=== PATIENT | female | born 1955 | race Caucasian/White ===

== ENCOUNTER 2022-02-23 20:40 | Outpatient (CLI) | payer OTHER, SELFPAY | END 2022-02-23 20:41 | disposition home or self-care (01) | LOC: AMB 03-04 10:32 | PROVIDERS: Visit Provider Family Medicine | DX: R45.851 Suicidal ideations (principal) | CPT/HCPCS: A0425; A0429 ==

== ENCOUNTER 2022-02-23 21:00 | Emergency (ER) | payer OTHER, SELFPAY ==
[2022-02-23 21:10] VITALS: BP 161/90; PULSE 94; RESP 18; TEMP 36.8; O2SAT 94; BMI 25.1
[2022-02-23 21:12] LABS: Appearance Urine Clear (Clear); Bilirubin Urine Negative (Negative); Blood Urine Negative (Negative); Color Urine Yellow (Yellow); Glucose Urine Negative (Negative); Ketones Urine Negative (Negative); Leukocyte Esterase Urine 1+ (Negative); Nitrite Urine Negative (Negative); Protein Urine Negative (Negative); Specific Gravity Urine <= 1.005 (1.000-1.030); Urobilinogen Urine 0.2 (0.2-1.0); pH Urine 5.5 (5.0-8.5)
[2022-02-23 21:22] LABS: RBC Urine 0-2 (0-2)
--- NOTE | 2022-02-23 21:49 | ED.NURSE ---
pt did change to paper scrubs and belongings taken from room and documented by security. pt has pleasant demeanor, not hungry, provided socks, ice water, and remote. pt states chronic bilat foot pain
--- NOTE | 2022-02-23 23:18 | ED.NURSE ---
pt did ambulate to br independently
--- NOTE | 2022-02-23 23:36 | ED_ITS ---
HPI - Psych General Chief Complaint: Psychiatric Problem/Disorder Stated Complaint: Mental Health Time Seen by Provider: 02/23/22 21:34 History of Present Illness HPI Narrative: 66-year-old woman brought to the emergency department by police with concern of suicidal intent. Admits to drinking tonkaitlynn, today. Endorses 5 today same as usual combination of beer and vodka. She feels that she is generally in the same degree of sadness as well. Last seen through this facility about a year ago for an inferior epigastric artery hematoma upon which was transferred to [facility]. Reportedly plan francis was to sit in a garage with the car running. This is how it is reported initially to me and her daughter Leslie called this called police. This gnosticist endorses often feeling this way it comes and goes indicating this is not a new feeling. The garage apparently is always a backup plan. When pressed it sounds like generally she is hoping to get cancer and I naturally. I note some oconnor on her forearms, these look consistent with baking and confirms that from her place of employment. Insert substances denies any history of alcohol treatment or withdrawal. She does not attend meetings /AA. Nor does she see any therapist. she also acknowledges that actually need antidepressant and does have a primary Sigge - this is A provider at the [facility]. at this point she says she would just as soon just as soon go home. I am not going to kill myself she says vegaight she was not actually in the garage in fact was in bed watching Netflix. Sounds there was some disagreement with her daughter Leslie who has moved back home. She says sometimes parents aren't She expresses jalen talking about her container gardening particularly hibiscus; this is what she would like to go back to. appreciated expressing disappointment that Leslie called for help. She does admit that she had said something done it before and it did not work apparently in reference to a pill ingestion in a suicide attempt. Sounds like she took a bunch of atorvastatin. I later speak with Leslie Camarena daughter: phone number [phone]. she is quite measured in conversation, calm. Leslie indicates her mother's problem with drinking and describes Ms. Camarena tendency to send not nice texts when she has been drinking. At one point Ms. Gan said no one loves me and was making statements better off indicating that she would then not have to pay bills ( the potential cost of this visit here today is partly what is stressing Ms. Gan at this point). what was particularly alarming to Leslie and then the family members to home with whom she shared this information; they reached a joint conclusion that it would be better to have Ms. Gan evaluated in the emergency department. Statement of more concern was done it before, tried it, this time going to do it right. Leslie indicates that there is a history of abusing leeo-vyo-wvzuhth medications as well as abuse of alcohol. Details of plan: See above Related Data Home Medications Medication Instructions Recorded Confirmed albuterol sulfate 90 mcg/actuation INHALATION 02/23/22 aerosol inhaler atorvastatin 40 mg tablet mg 02/23/22 ipratropium 0.5 mg-albuterol 3 mg ml INHALATION 02/23/22 (2.5 mg base)/3 mL nebulization soln ipratropium 20 mcg-albuterol 100 INHALATION 02/23/22 mcg/actuation mist for inhalation (Combivent Respimat) levothyroxine 25 mcg tablet mcg 02/23/22 lisinopril 5 mg tablet mg 02/23/22 nicotine 14 mg/24 hr daily 02/23/22 transdermal patch umeclidinium 62.5 mcg-vilanterol INHALATION 02/23/22 25 mcg/actuation powdr for inhalation (Anoro Ellipta) Allergies Allergy/AdvReac Type Severity Reaction Status Date / Time No Known Drug Allergies Allergy Verified 02/23/22 21:59 Review of Systems Status of ROS: Reports: 10 or more systems reviewed and unremarkable except as noted in History and below [facility] Medical History (Updated 02/24/22 @ 01:24 by Noah Parra MD) Suicide attempt Social History (Updated 02/23/22 @ 23:57 by Noah Parra MD) Previous occupational history: currently working at [employer] Smoking Status: Current every day smoker How often do you have a drink containing alcohol: 4 or more times a week How many standard drinks containing alcohol do you have on a typical day: 5 or 6 How often do you have six or more drinks on one occasion: Weekly AUDIT-C Alcohol total score: 9 Non-prescribed substance use: denies use service: No Exam Narrative: Exam Narrative: Ms. Gan is pleasant. Eyes are injected. Looks as if may have been a little tearful this evening. She is appropriately casually groomed. Skin is warm and dry. No evidence of self-harm behavior. These 2 burn fisher 1 on each forearm are consistent with work injury. Well-perfused peripherally. seems mildly intoxicated. Thought content is sad, affect a little depressed. She is able to smile. is polite in her frustration about being in the emergency department. She denies SI or HI. Cranial nerves 2-12 intact. Oropharynx is moist Transitions to sitting without difficulty. is noted to be ambulating without difficulty as well. CV elevated rate regular rhythm no MR Wick. abdomen is soft nontender without masses. Const: Vital Signs, click to edit/add: Vital Signs - 24 hr 02/23/22 21:10 Temperature 98.2 F Pulse Rate [Right Pulse Oximeter] 94 Respiratory Rate 18 Blood Pressure [Ri ght Upper Arm] 161/90 H Pulse Oximetry 94 Course Course Hospital Course: From a conversation with Ms. Gan, I would not consider her to be imminently suicidal. I would however like her to prenatal genetic counselor with a [employer] to obtain a sooner than later psychiatric appointment in follow-up. She is begrudgingly willing to do this. Reevaluation(s) Reevaluation #2: having met with [employer] Clary, still requesting departure home. Not suicidal. Consultations Consultation #1: spoke with [employer] net developer Time: 00:15 Vital Signs Vital signs: Initial Vital Signs Temperature 98.2 F 02/23/22 21:10 Temperature Source Temporal Artery Scan 02/23/22 21:10 Pulse Rate 94 02/23/22 21:10 Respiratory Rate 18 02/23/22 21:10 Blood Pressure 161/90 H 02/23/22 21:10 Blood Pressure Mean 113 02/23/22 21:10 Blood Pressure Position Supine 02/23/22 21:10 Pulse Oximetry 94 02/23/22 21:10 Oxygen Delivery Method 02/23/22 21:10 Vital Signs Temperature 98.2 F 02/23/22 21:10 Pulse Rate 94 02/23/22 21:10 Respiratory Rate 18 02/23/22 21:10 Blood Pressure 161/90 H 02/23/22 21:10 Pulse Oximetry 94 02/23/22 21:10 Temperature 98.2 F 02/23/22 21:10 Pulse Rate 94 02/23/22 21:10 Respiratory Rate 18 02/23/22 21:10 Blood Pressure 161/90 H 02/23/22 21:10 Pulse Oximetry 94 02/23/22 21:10 MDM - Psych Differential Diagnosis Differential diagnosis: Likely suicidal ideation, bipolar disorder and depression Medical Records Attestation: I reviewed the patient's medical records. Medical records narrative: amended past medical surgical history above Lab Data Labs: Lab Results 02/23/22 Range/Units 21:00 Urine Color Yellow (Yellow) Urine Appearance Clear (Clear) Urine pH 5.5 (5.0-8.5) Ur Specific [place] <= 1.005 (1.000-1.030) Urine Protein Negative (Negative) Urine Glucose (UA) Negative (Negative) Urine Ketones Negative (Negative) Urine Blood Negative (Negative) Urine Nitrite Negative (Negative) Urine Bilirubin Negative (Negative) Urine Urobilinogen 0.2 (0.2-1.0) Ur Leukocyte Esterase 1+ A (Negative) Urine RBC 0-2 (0-2) Urine WBC 2-5 (0-5) Ur Squamous Epith Cells None (None-Few) Urine Bacteria None (None) Discharge Plan Discharge Clinical Impression: Suicidal ideation, Alcohol intoxication Patient Disposition: Home w/ Parent or Adult Condition: Improved Additional Instructions: anticipate a call from [facility] to schedule therapy follow-up. You mentioned that you thought you might benefit from a medicine for depression; please follow-up with Sigge to discuss this further. I think you would be kong to markedly slow your alcohol consumption. Do consider attending AA or other meetings. Do try to get a little heart pumping exercise in daily, try to accomplish quality and regular sleep, see the morning sun. If you have thoughts of self-harm and after talking with persons close to you, calling crisis Line, you are still feeling unsafe, please return to the emergency department. Prescriptions: No Action atorvastatin 40 mg tablet 0RF nicotine 14 mg/24 hr patch 24 hour 0RF ipratropium-albuterol 0.5 mg-3 mg(2.5 mg base)/3 mL solution for nebulization INHALATION 0RF Label Comments: USE 3 ML VIA NEBULIZER FOUR TIMES DAILY NEEDED FOR SHORTNESS OF BREATH levothyroxine 25 mcg tablet 0RF Label Comments: TAKE 1 AND 1/2 TABLETS BY MOUTH EVERY DAY BEFORE BREAKFAST lisinopril 5 mg tablet 0RF albuterol sulfate 90 mcg/actuation HFA aerosol inhaler INHALATION 0RF Label Comments: INHALE 2 PUFFS BY MOUTH EVERY 4 HOURS NEEDED Anoro Ellipta 62.5-25 mcg/actuation blister with device INHALATION 0RF Label Comments: INHALE 1 PUFF BY MOUTH ONCE DAILY. DISCARD INHALER 6 WEEKS AFTER OPENING OR WHEN THE COUNTER READS Combivent Respimat 20-100 mcg/actuation mist INHALATION 0RF Label Comments: INHALE 1 PUFF BY MOUTH EVERY 4 HOURS NEEDED Follow Up/Referrals: Provider,Not a Local [Primary Care Provider] - Stand Alone Forms: [facility] [employer] Info Instructions
--- NOTE | 2022-02-24 00:20 | ED.NURSE ---
ALFREDO speaking to pt
== END 2022-02-24 01:36 ==
PROVIDERS: Emergency Provider Family Medicine
DX: F10.129 Alcohol abuse with intoxication, unspecified (principal); R45.851 Suicidal ideations
CPT/HCPCS: 81003; 81015; 99283; M0243

== ENCOUNTER 2025-03-31 16:15 | Emergency (ER) | payer OTHER, SELFPAY ==
[2025-03-31] VITALS (25 sets, daily range): BP systolic 123–151; BP diastolic 67–96; PULSE 88–100; RESP 12–67; TEMP 35.8; O2SAT 87–94; BMI 21.0
--- OUTSIDE RECORDS SUMMARY | 2025-03-31 16:17 | XMS_ITS | Clinical Summary ---
Author Organization [facility] Address [address] [place] [id number] Care Team Providers Care Production Foreman Name Role Phone Jessica Valentine Primary Care Provider [phone] Allergies Active Allergy Reactions Criticality Noted Date Comments Cat Dander *Unknown Medium 03/15/2021 Sneezing, coughing Lisinopril Renal Failure 06/18/2022 creatinine increase to 1.9, normalized with cessation of the ACEI Medications NebulizerIndication s:COPD exacerbation (HC) Nebulizer, disposable neb kit x 4, reuseable neb kit x 1, mask x 1, filters x 1. Frequency of use: daily; Length of need: 99 months 1 Each 03/17/20 21 Active albuterol-ipratropi um (DUONEB) (2.5-0.5 mg) in 3 mL NEBULIZATION solutionIndications :Chronic obstructive pulmonary disease, unspecified COPD type (HC) Inhale 3 mL via a nebulizer 4 times daily if needed for Shortness Of Breath or Wheezing (SOB). 180 mL 3 04/13/20 24 Active amLODIPine (NORVASC) 5 mg tabletIndications:E ssential hypertension Take 1 Tablet (5 mg) by mouth once daily. 90 Tablet 3 04/13/20 24 Active atorvastatin (LIPITOR) 80 mg tabletIndications:H yperlipidemia, unspecified hyperlipidemia type Take 1 Tablet (80 mg) by mouth at bedtime. 90 Tablet 3 04/13/20 24 Active ipratropium-albuter oL (combivent respimat) (20-100 mcg each actuation) mist inhalerIndications: Chronic obstructive pulmonary disease, unspecified COPD type (HC) Inhale 1 Puff by mouth 4 times daily. 1 Each 04/13/20 24 Active levothyroxine (SYNTHROID) 25 mcg tabletIndications:A cquired hypothyroidism TAKE 1 AND 1/2 TABLETS BY MOUTH EVERY DAY BEFORE BREAKFAST 135 Tablet 3 04/13/20 24 Active ondansetron (ZOFRAN ODT) 4 mg disintegrating tabletIndications:A cute gastroenteritis Place 1 Tablet (4 mg) on the tongue every 8 hours if needed for Nausea/Vomitin g. 30 Tablet 04/13/20 24 Active Active Problems Problem Noted Date Diagnosed Date Alcohol dependence, daily use 04/15/2024 Acquired hypothyroidism 12/03/2015 HTN (hypertension) 06/19/2015 COPD (chronic obstructive pulmonary disease) Pap smear of cervix with ASCUS, cannot exclude H GSIL 04/25/2003 Overview (05/05/2023): 04/2003 ASC-H 04/2003 [place]: ECC Benign 05/2004 NIL 07/2010 NIL 01/2015 NIL 04/2018 NIL/HPV negative 03/2023 UNS/HPV negative. Plan: Repeat pap in 3 months. Resolved Problems Problem Noted Date Diagnosed Date Resolved Date Depression, recurrent 04/17/20232023 Alcohol dependence, daily use 04/11/2021 04/15/2024 Hyperglycemia 03/17/2021 05/14/2022 Hypomagnesemia 10/30/2017 04/28/2018 Hypothyroidism (acquired) 04/30/2016 Hypomagnesemia 02/01/2015 10/30/2017 Hypokalemia 01/31/2015 10/30/2017 Alcohol dependence 01/31/2015 8 Postmenopausal 12/20/2014 05/14/2022 Elevated BP 12/19/2014 10/30/2017 Tobacco dependence 12/05/2014 1 No significant past medical history 02/07/2012 12/05/2014 Hyponatremia 05/14/2022 Encounter for screening colonoscopy 05/14/2022 Immunizations Immunization Administration Dates Next Due COVID-19 vaccine ([employer] 30mcg/0.3mL) 12YO+ BIVALENT PF, MDV 05/14/2022 Influenza, IIV4 05/14/2022, 0,05/04/2019,06/22,04/22/2017,04/30/2016,06/19/2015 Pneumococcal Conj 20-valent (Prevnar 20) 06/18/2022 Pneumococcal Poly,23-Valent (Pneumovax) 04/11/2021 Td (Age >=7 Years) 05/14/2022 Tdap 02/25/2012 02/24/2022 Zoster (Shingrix-RZV, recombinant) 04/15/2023, Family History Medical History Relation Name Comments Good Health Brother Good Health Daughter 1 Good Health Daughter 2 Dementia Father No Known Problems Maternal Grandfather No Known Problems Maternal Grandmother Cancer-breast Mother Hypertension Mother Osteoporosis Mother Cancer-breast Other Mat. Great Aun t Heart Disease Paternal Grandfather [place] No Known Problems Paternal Grandmother Good Health Sister 1 Good Health Sister 2 Diabetes Son 1 type 1 Good Health Son 2 Cancer-ovarian No Family History Relation Name Status Comments Brother Daughter 1 Daughter 2 Father Maternal Grandfather Maternal Grandmother Mother Alive Other Paternal Grandfather Paternal Grandmother Sister 1 Alive Sister 2 Son 1 Son 2 Social History Tobacco Use Types Packs/Day Years Used Date Smoking Tobacco: Former Cigarettes 0.3 30 0 03/13/1991 - 03/13/2021 Smokeless Tobacco: Never Tobacco Cessation:Counseling Given: Not Answered Comments:15 year pack history Alcohol Use Standard Drinks/Week Comments Yes 1 (1 standard drink = 0.6 oz pure alcohol) - Patient has 1 screwdriver a day PHQ-2 Answer Date Recorded PHQ-2 TOTAL SCORE 2 04/15/2023 Social Connections Answer Date Recorded Do you often feel lonely or isolated from those around you? 0 09/29/2024 Financial Resource Strain Answer Date R ecorded Difficulty of Paying Living Expenses 3 09/29/2024 Difficulty of Paying Living Expenses Not on file 09/29/2024 Food Insecurity Answer Date Recorded Do you worry your food will run out before you are able to buy more? 2 09/29/2024 Transportation Needs Answer Date Record ed Does lack of transportation keep you from medica l appointments? 1 09/29/2024 Does lack of transportation keep you from work, meetings or getting things that you need? 1 09/29/2024 Housing Stability Answer Date Recorded What is your housing situation today? 1 09/29/2024 Utilities Answer Date Recorded Do you have trouble paying f or utilities (for example, heat, electricity, water, phone)? 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 file Not on file Not on file Obstetrics History Last Filed Vital Signs Vital Sign Reading Time Taken Comments Blood Pressure 146/78 09/29/2024 8:55 AM BARREL MAKER Pulse 87 09/29/2024 8:17 AM BARREL MAKER Temperature 36.8 C (98.2 F) 09/29/2024 8:17 AM BARREL MAKER Respiratory Rate 16 04/11/2021 2:46 PM CDT Oxygen Saturation 96% 09/29/2024 8:17 AM BARREL MAKER Inhaled Oxygen Concentration - - Weight 59.4 kg (131 lb) 09/29/2024 8:17 AM BARREL MAKER Height 165.1 cm (5' 5) 09/29/2024 8:17 AM BARREL MAKER Body Mass Index 21.8 09/29/2024 8:17 AM BARREL MAKER Plan of Treatment Health Maintenance Due Date Last Done Comments RSV vaccine for adults or (1 - Risk 60-74 years 1-dose series) 2017 Depression screening for age 12+ 04/17/2024 04/17/2023, 04/17/2023, 04/17/2023, Additional history exists COVID-19 vaccine series ( season) 2024 05/14/2022, 01/27/2021 Mammogram for age 45-75 04/21/2025 04/21/20 24, 04/17/2023, 06/01/2020, Additional history exists Influenza Vaccine (#1) 2025 , 06/01/2020, 05/04/2019, Additional history exists BMI (ht and wt on same day) for age 18+ 09/29/2025 09/29/2024, 04/13/2024, 04/15/2023, Additional history exists Lipids for age 45-75 04/13/2029 04/13/2024, 04/15/2023, 05/14/2022, Additional history exists Colonoscopy through age 75 11/20/203011/20, 11/19/2010, 11/19/2010 Tetanus booster 05/14/2032 05/14/2022, 02/25/2012 Hepatitis C screening for age 18-79 Completed 09/06/2016 Pneumococcal series for age 50+ Completed 06/18/2022, 04/11/2021 Zoster (shingles) series for age 50+ Completed 04/15/2023, 05/14/2022 DEXA/DXA scan for age 65+ Completed 04/17/2023 Hepatitis B series for 19+ Aged Out N o longer eligible based on patient's age to complete this topic Procedures Procedure Name Priority Date/Time Associated Diagnosis Comments XR MAMMO BILAT SCREENING Routine 04/21/2024 7:12 AM CDT Visit for screening mammogram LIPID PANEL W REFLEX MEASURED LDL Routine 04/13/2024 1:51 PM CDT Hyperlipidemia, unspecified hyperlipidemia type XR DXA BONE DENSITY 2 SITES AXIAL Routine 04/17/2023 10:48 AM CDT Postmenopausal COLONOSCOPY 11/20/2020 8:48 AM CDT ANTI HCV Routine 09/06/2016 4:00 PM BARREL MAKER Screening from Last 3 Months or Most Recently Relevant to Health Maintenance Results * XR MAMMO BILAT SCREENING (04/21/2024 7:12 AM CDT) Anatomical Region Laterality Modality BREASTS, Breast Left, Breast Right Bilateral Mammography Impressions 04/21/2024 1:20 PM CDT There is no radiographic evidence for malignancy. Recommend annual mammograms. MAMMOGRAM ASSESSMENT: ACR 1 Negative PATIENTS: You will also receive a letter with your examination results in an easy to read format. If you have questions about your results, please contact your referring provider. Narrative 04/21/2024 1:20 PM CDT For Patients: As a result of the 21st Century Cures Act, medical imaging exams and procedure reports are released immediately into your electronic medical record. You may view this report before your referring provider. If you have questions, please contact your health care provider. XR MAMMO BILAT SCREENING [[id number]] CLINICAL HISTORY: This is an asymptomatic 68 y.o. patient. INDICATION FOR EXAM: Mammogram Screening. TECHNIQUE: CC & MLO views were obtained. This study was evaluated with the assistance of Computer-Aided Detection. COMPARISON FILM: Yes 04/17/23 [facility] 06/01/20 [facility] FINDINGS: There are scattered areas of fibroglandular density. There are no dominant masses, suspicious micro calcifications or areas of architectural distortion. us Jessica Valentine PA MAMMO Final Resu lt * (ABNORMAL) LIPID PANEL W REFLEX MEASURED LDL (04/13/2024 1:51 PM CDT) CHOLESTEROL,TOTAL 257(H) 100 - 199 mg/dL 04/13/2024 11:34 PM T [facility] Comment: Cholesterol, Total Reference Ranges Desirable <200 mg/dL Borderline 200-239 mg/dL High >=240 mg/dL TRIGLYCERIDES 171(H) <150 mg/dL 04/13/2024 11:34 PM CDT [facility] HDL CHOLESTEROL 103 >40 mg/dL 11:34 PM CDT [facility] NON-HDL CHOLESTEROL 154(H) <145 mg/dl 04/13/2024 11:34 PM CDT [facility] CHOL/HDL RATIO 2.50 <4.50 04/13/2024 11:34 PM CDT [facility] LDL CHOLESTEROL 120 <=130 mg/dL 04/13/2024 11:34 PM CDT [facility] VLDL CHOLESTEROL 34(H) <=30 mg/dL 04/13/2024 11:34 PM T [facility] PROVIDER ORDERED STATUS RANDOM 04/13/2024 11:34 PM T [facility] Blood BLOOD SPECIMEN / Unknown Venipuncture / Unknown 04/13/2024 1:51 PM CDT 04/13/2024 1:52 PM CDT eJssica AJ CHEMISTRY Final Resu lt [facility] [address] [place] [address], [place] * XR DXA BONE DENSITY 2 SITES AXIAL (04/17/2023 10:48 AM CDT) Anatomical Region Laterality Modality Spine, HIPS, HIPL, HIPR Other Impressions 04/29/2023 4:05 PM CDT Normal bone density. RECOMMENDATIONS: The National Osteoporosis Foundation recommends pharmacologic treatment for patients with T-scores of -2.5 or less, patients with prior history of fragility fractures, or patients with 10-year probability of greater than 3% at hips or greater than 20% of suffering major osteoporotic fractures. Recommend continued optimization of calcium and vitamin D intake through dietary means and/or supplementation and regular exercise. Repeat scan recommended in 3-5 years. Brittany Callahan PA-C [employer] 04/29/2023 Narrative 04/29/2023 4:05 PM CDT For Patients: Results are automatically released to your [facility] ([employer]) account once available, in compliance with federal regulations. This means that you may see your results before your provider has had a chance to review them. Please allow 2-3 business days for your provider to comment on the results. XR DXA Bone Mineral Density (BMD) EXAM LOCATION: [address] [address] PATIENT NAME: Aria Gan DATE OF : 1955 EXAM DATE: 04/17/2023 REQUESTING PROVIDER: Jessica Valentine PA GENDER AT : female HEIGHT: 5' 5.16 (04/15/2023) WEIGHT: 137 lb (04/15/2023) MENOPAUSAL STATUS: Postmenopausal RACE/ETHNICITY: White RISK FACTORS: Alcohol > 3 drinks/day (current), Alcohol > 3 drinks/day (prior), Family History of Osteoporosis, Family History of Hip Fracture (parental), Smoking (prior), and White Race CURRENT MEDICATION FOR BONE LOSS: NONE INDICATION: Post-Menopause COMPARISON DATE(S): None DXA scans are compared to prior studies for a patient only when the two (or more) studies were performed on the same scanner. It is not possible to compare data generated on one scanner to data from another because there are not standards in DXA equipment. This applies even if the two scanners are made by the same foam rubber fabricator. PROCEDURE: Dual-energy x-ray absorptiometry performed with routine technique. Reporting is completed in the form of a T-score. The T-score represents the standard deviation from peak bone mass based on young healthy adult. A Z-score is used for diagnosis in premenopausal women, and for men under the age of 50. FINDINGS: RESULT LUMBAR SPINE L1 - L2 BMD: 1.304 g/cm2 T-Score: + 1.1 Z-Score: + 2.8 Change from prior: None RESULTS FEMUR Left femoral neck BMD: 0.906 g/cm2 T-Score: - 0.9 Z-Score: + 0.6 Change from prior: None Right femoral neck BMD: 0.957 g/cm2 T-Score: - 0.6 Z-Score: + 0.9 Change from prior: None Left hip BMD: 1.052 g/cm2 T-Score: + 0.3 Z-Score: + 1.6 Change from prior: None Right hip BMD: 1.062 g/cm2 T-Score: + 0.4 Z-Score: + 1.7 Change from prior: None WHO criteria: Normal: T-score at or above -1 SD Osteopenia: T-score between -1.1 and -2.4 SD Osteoporosis: T-score at or below -2.5 SD us Jessica AJ DEXA Final Resu lt * COLONOSCOPY (11/20/2020 8:48 AM CDT) 11/20/2020 8:48 AM CDT Narrative Transcriptions Matty Barry MD - 11/20/2020 9:42 AM CDT Patient Name: Aria Gan Procedure Date: 11/20/2020 Gender: Female Date of : 1955 Admit Type: Ambulatory Procedure: Colonoscopy Proceduralist: Matty Campbell Indications/Pre-Op Diagnosis: Screening for colorectal malignantneoplasm Medications: Propofol per Anesthesia, GeneralAnesthesia Procedure Description: The patient had risks, benefits and alternatives explained to andgave informed consent. The patient had a stable cardiopulmonary status and judged an adequate candidate for conscious sedation. The colonoscope was passed through the anus and advanced to thececum, identified by appendiceal orifice and ileocecal valve. Thecolonoscopy was performed without difficulty. The patient tolerated the procedure well. The quality of the bowel preparation was good. The ileocecal valve, appendiceal orifice, and rectum were photographed. Complications: No immediate complications. Estimated Blood Loss & Specimen: Estimated blood loss: none. Specimen collected - Yes and sent to Laboratory Findings: The perianal and digital rectal examinations were normal. A 4 mm polyp was found in the mid rectum. The polyp was sessile. The polyp was removed with a hot snare. Resection and retrieval were complete. The retroflexed view of the distal rectum and anal verge was normaland showed no anal or rectal abnormalities. Impressions/Post-Op Diagnosis: - One 4 mm polyp in the mid rectum, removed with a hot snare.Resected and retrieved. Recommendation: - Discharge patient to home. - Resume previous diet. - Continue present medications. - Await pathology results. - Repeat colonoscopy in 5-10 years for surveillance. Moderate Sedation: An independent trained observer was present and continuouslymonitored the patient. Matty Barry, 11/20/2020 9:42:28 AM This report has been signed electronically. Note Initiated On: 11/20/2020 8:48 AM us Matty Barry MD PROCEDURE ORD Final Res ult * ANTI HCV (09/06/2016 4:00 PM BARREL MAKER) HEPATITIS C ANTIBODY Non-Reacti ve Non-Reacti ve 09/07/2016 1:27 PM BARREL MAKER [facility] Blood BLOOD SPECIMEN / Unknown Venipuncture / Unknown 09/06/2016 4:00 PM BARREL MAKER 09/06/2016 6:09 PM BARREL MAKER Narrative [facility] - 09/07/2016 1:27 PM BARREL MAKER Antibodies to HCV not detected; does not exclude the possibility of exposure to HCV. us Jessica Roberts MD SEND OUTS Final Re sult [facility] [address] [place] [address], [place] from Last 3 Months or Most Recently Relevant to Health Maintenance Insurance [employer] Advance Directives * Full Code (Latest Code Status on File) Date Activated Date Inactivated Comments 03/15/2021 8:52 AM 03/17/2021 1:55 PM Question Answer Comments Code Status Discussion: Discussed * Full Code Date Activated Date Inactivated Comments 11/20/2020 8:15 AM 11/20/2020 12:16 PM Question Answer Comments Code Status Discussion: Per Existing Order * Full Code Date Activated Date Inactivated Comments 10/30/2017 4:57 PM 10/31/2017 12:05 PM Question Answer Comments Code Status Discussion: Discussed * Full Code Date Activated Date Inactivated Comments 01/31/2015 11:14 PM 02/01/2015 2:20 PM Care Teams Production Foreman Relationship Specialty Start Date End Date Jessica [place] [address] PCP - General Physician Supervisor Finishing Room 04/13/24
--- NOTE | 2025-03-31 17:03 | CRLHL7_ITS ---
For Patients: As a result of the Century Cures Act, medical imaging exams and procedure reports are released immediately into your electronic medical record. You may view this report before your referring provider. If you have questions, please contact your health care provider. INDICATION: Shortness of breath. TECHNIQUE: Chest 1 views. COMPARISON: None. FINDINGS: Lungs: Normal lung volume. No consolidation. Left lower lung zone 9 millimeter nodular opacity, relatively high attenuation. Favoring calcified granuloma. Pleura: No pleural effusion or pneumothorax. Heart and Mediastinum: Normal heart size. The great vessels of the thorax are unremarkable. Bones: No acute displaced osseous process. IMPRESSION: No consolidation. Left lower lung zone 9 millimeter nodular opacity, relatively high attenuation. Favoring calcified granuloma. Consider confirmation with nonemergent chest CT. Dictated by Noah Osman MD @ 03/31/2025 6:01:38 PM (Electronically Signed)
--- NOTE | 2025-03-31 17:22 | ED.GENADULT ---
HPI - General Adult General Date Seen: 03/31/25 Chief complaint: Chest Pain Stated complaint: chest pain, difficulty breathing Time Seen by Provider: 03/31/25 16:57 History of Present Illness HPI narrative: Patient is a 69-year-old woman here with her daughter for evaluation of left-sided chest pain associated with shortness of breath, onset today. She indicates a fairly localized area in the left anterior chest wall, notes that it hurts to breathe and she feels somewhat short of breath. No cough or fever, no lower extremity swelling or pain, no history of cardiac problems or DVT PE. She does have a diagnosis of COPD, quit smoking 5 years ago. She is a daily drinker, told the nurse that she had ?a beer around 1. She lives independently in an apartment. Related Data Home Medications ?Medication ?Instructions ?Recorded ?Confirmed albuterol sulfate 90 mcg/actuation inhalation 02/23/22 aerosol inhaler atorvastatin 40 mg tablet mg 02/23/22 ipratropium 0.5 mg-albuterol 3 mg ml inhalation 02/23/22 (2.5 mg base)/3 mL nebulization soln ipratropium 20 mcg-albuterol 100 inhalation 02/23/22 mcg/actuation mist for inhalation (Combivent Respimat) levothyroxine 25 mcg tablet mcg 02/23/22 lisinopril 5 mg tablet mg 02/23/22 nicotine 14 mg/24 hr daily 02/23/22 transdermal patch umeclidinium 62.5 mcg-vilanterol inhalation 02/23/22 25 mcg/actuation powdr for inhalation (Anoro Ellipta) Previous Rx's ?Medication ?Instructions ?Recorded azithromycin 250 mg tablet See Rx Instructions PO .COMPLEX #6 03/31/25 (Zithromax Z-Stalin) tabs ipratropium 20 mcg-albuterol 100 1 puff inhalation Q6H #4 grams 03/31/25 mcg/actuation mist for inhalation (Combivent Respimat) prednisone 20 mg tablet 20 mg PO BID #10 tabs 03/31/25 Allergies Allergy/AdvReac Type Severity Reaction Status Date / Time No Known Drug Allergies Allergy Verified 03/31/25 18:06 Review of Systems Status of ROS: Reports: 10 or more systems reviewed and unremarkable except as noted in History and below [facility] Medical History Suicide attempt ?T14.91XA - Suicide attempt, initial encounter (ICD-10) Social History Previous occupational history: currently working at [employer] Smoking Status: Former smoker Do you use any of these nicotine containing products: None Second hand tobacco smoke exposure: Yes How often do you have a drink containing alcohol: never How often do you have six or more drinks on one occasion: Never AUDIT-C Alcohol total score: 0 Non-prescribed substance use: denies use service: No Exam Narrative: Exam Narrative: Vital signs reviewed In general, alert, nontoxic woman, looks older than her stated age. Breathing easily. Head: Normocephalic, atraumatic. Eyes: Sclera clear. Pupils equal and reactive. ENT: Mucous membranes moist. Neck: Supple without adenopathy. Heart: Regular rate and rhythm without murmur. Lungs: Clear. No increased work of breathing, crackles or wheezes. No considerable chest wall tenderness. No bruising or rash. Abdomen: She seems to have a little bit of diffuse abdominal tenderness without rebound guarding or rigidity. Extremities: Well perfused, pulses intact. No significant edema. Neurologic: Alert, conversant. Speech fluent, face symmetric. Moves all extremities equally. Skin: Warm, dry well perfused. Affect: Normal. Const: Vital Signs, click to edit/add: Vital Signs - 24 hr 03/31/25 16:36 03/31/25 16:50 03/31/25 17:00 Temperature 96.5 F L Pulse Rate Pulse Rate [Pulse Oximeter] 95 Respiratory Rate 18 65 H 21 Blood Pressure Blood Pressure [Ri ght Upper Arm] 151/79 H Pulse Oximetry 94 Oxygen Delivery Me thod Room Air 03/31/25 17:15 03/31/25 17:16 03/31/25 17:30 Temperature Pulse Rate Pulse Rate [Pulse Oximeter] Respiratory Rate 14 17 43 H Blood Pressure 135/73 Blood Pressure [Ri ght Upper Arm] Pulse Oximetry Oxygen Delivery Me thod 03/31/25 17:31 03/31/25 17:32 03/31/25 17:45 Temperature Pulse Rate Pulse Rate [Pulse Oximeter] Respiratory Rate 14 22 67 H Blood Pressure 137/80 Blood Pressure [Ri ght Upper Arm] Pulse Oximetry Oxygen Delivery Me thod 03/31/25 18:07 03/31/25 18:08 03/31/25 18:15 Temperature Pulse Rate 88 Pulse Rate [Pulse Oximeter] Respiratory Rate 17 12 14 Blood Pressure 141/88 H Blood Pressure [Ri ght Upper Arm] Pulse Oximetry 94 Oxygen Delivery Wv thod 03/31/25 18:30 03/31/25 18:31 03/31/25 18:45 Temperature Pulse Rate 89 89 94 Pulse Rate [Pulse Oximeter] Respiratory Rate 14 12 18 Blood Pressure 142/74 H Blood Pressure [Ri ght Upper Arm] Pulse Oximetry 93 94 87 L Oxygen Delivery Wv thod 03/31/25 19:00 03/31/25 19:01 03/31/25 19:02 Temperature Pulse Rate 91 92 92 Pulse Rate [Pulse Oximeter] Respiratory Rate 16 17 18 Blood Pressure 140/71 H Blood Pressure [Ri ght Upper Arm] Pulse Oximetry 90 90 90 Oxygen Delivery Wv thod 03/31/25 19:15 03/31/25 19:30 03/31/25 19:31 Temperature Pulse Rate 89 88 88 Pulse Rate [Pulse Oximeter] Respiratory Rate 15 14 14 Blood Pressure 139/67 Blood Pressure [Ri ght Upper Arm] Pulse Oximetry 91 91 [facility] 19:45 Temperature Pulse Rate Pulse Rate [Pulse Oximeter] Respiratory Rate 13 Blood Pressure Blood Pressure [Ri ght Upper Arm] Pulse Oximetry Oxygen Delivery Wv thod Course Course ED Course: Diagnostic considerations are broad at this time. Patient denies any trauma although with daily alcohol use that needs to be considered. I do not see any outward evidence of trauma. Will do a chest x-ray to start, other diagnostic considerations would include acute coronary syndrome or angina, pulmonary embolism, pneumothorax, COPD exacerbation, pneumonia, congestive heart failure, pancreatitis, biliary colic among others. I reviewed her labs and chest x-ray, she does have a calcified lesion in the left lung base, radiology felt this was likely a calcified granuloma but recommended non emergent CT to follow-up if needed. Her labs are notable for a markedly low magnesium of 0.8, this was replaced. Her blood alcohol was 0.09. Her troponin was negative at time 0 and time 2 hours. D-dimer was elevated at 1.07 so I did order CT scan to look for pulmonary embolism or other acute pathology. By my review, there is no evidence of consolidation, pulmonary embolism, pneumothorax. I reviewed the final radiology report, they note some bronchial thickening and minor mucus plugging. Calcified granuloma I in the left lower lung. Recommended that we treat her as a COPD exacerbation, I gave her a dose of prednisone here, she requested a refill on her Combivent. Recommend follow-up with primary care in the next week to 10 days for recheck, reviewed reasons to return such as severe worsening pain, fevers, significant shortness of breath etcetera. Vital Signs Vital signs: Initial Vital Signs Temperature 96.5 F L 03/31/25 16:36 Temperature Source Temporal Artery Scan 03/31/25 16:36 Pulse Rate 95 03/31/25 16:36 Pulse Rhythm Regular 03/31/25 16:36 Respiratory Rate 18 03/31/25 16:36 Blood Pressure 151/79 H 03/31/25 16:36 Blood Pressure Mean 103 03/31/25 16:36 Blood Pressure Position Sitting 03/31/25 16:36 Pulse Oximetry 94 03/31/25 16:36 Oxygen Delivery Method Room Air 03/31/25 16:36 Vital Signs Temperature 96.5 F L 03/31/25 16:36 Pulse Rate 95 03/31/25 16:36 Respiratory Rate 18 03/31/25 16:36 Blood Pressure 151/79 H 03/31/25 16:36 Pulse Oximetry 94 03/31/25 16:36 Oxygen Delivery Method Room Air 03/31/25 16:36 Temperature 96.5 F L 03/31/25 16:36 Pulse Rate 88 03/31/25 19:31 Respiratory Rate 13 03/31/25 19:45 Blood Pressure 139/67 03/31/25 19:31 Pulse Oximetry 92 03/31/25 19:31 Oxygen Delivery Method Room Air 03/31/25 16:36 Medications Administered Medications: Discontinued Medications Generic Name Dose Route Start Last Admin Trade Name Freq PRN Reason Stop Dose Admin Sodium Chloride 500 mls @ 500 mls/hr 03/31/25 17:48 03/31/25 18:29 0.9 % Sodium Chloride 500 Ml IV 03/31/25 18:47 Infused .Q1H ONE Infusion Magnesium Sulfate 2 gm in 50 mls @ 25 mls/hr 03/31/25 17:48 03/31/25 19:40 Magnesium Iv IVPB 03/31/25 19:47 Infused ONCE ONE Infusion Medical Decision Making Lab Data Labs: Lab Results 03/31/25 03/31/25 03/31/25 Range/Units 17:03 17:15 19:41 WBC 9.13 (4.50-11.00) K/uL RBC 3.79 L (4.00-5.20) m/uL Hgb 11.4 L (12.0-16.0) gm/dL Hct 34.6 (33.0-51.0) % MCV 91 (80-100) fL MCH 30 (26-34) pg MCHC 33 (32-36) gm/dL RDW Coeff of Macario 12.4 (11.5-15.5) % Plt Count 299 (140-440) K/uL Neut % (Auto) 75.5 H (42.0-72.0) % Lymph % (Auto) 12.3 L (20-44) % Sac % (Auto) 8.3 (0.0-11.0) % Eos % (Auto) 3.0 (0.0-7.0) % Baso % (Auto) 0.2 (0.0-3.0) % Neut # (Auto) 6.90 (1.7-7.0) K/uL Lymph # (Auto) 1.10 (0.90-2.90) K/uL Sac # (Auto) 0.80 (0.00-0.90) K/UL Eos # (Auto) 0.27 (0.00-0.50) K/uL Baso # (Auto) 0.02 (0.00-0.30) K/uL Abs Immat Gran (auto) 0.06 (0.00-0.30) K/uL Imm/Tot Granulo (auto) 0.7 % D-Dimer Quant (PE/DVT) 1.07 H (0.00-0.50) ug/ml Sodium 136 (135-149) mmol/L Potassium 3.3 L (3.6-5.1) mmol/L Chloride 102 (96-114) mmol/L Carbon Dioxide 23 (20-32) mmol/L Anion Gap 11 (7-15) mEq/L BUN 20 (7-30) mg/dL Creatinine 0.9 (0.5-1.5) mg/dL Estimated Creat Clear 50.82 Estimated GFR 70 ml/min Glucose 110 (60-115) mg/dL Calcium 8.6 (8.4-10.6) mg/dL Magnesium 0.8 L* (1.5-2.6) mg/dL Total Bilirubin 0.5 (0.1-1.5) mg/dL Direct Bilirubin 0.3 (0.0-0.5) mg/dL AST 38 H (12-35) U/L ALT 22 (4-35) U/L Alkaline Phosphatase 98 (40-150) U/L C-Reactive Protein 3.3 H (0.5-1.0) mg/dL NT-Pro-B Natriuret Pep 354 H (See Note) pg/mL Total Protein 7.7 (6.0-8.3) g/dL Albumin 4.2 (3.3-5.0) g/dL Ethyl Alcohol 0.09 H (0.01-0.03) % POC Troponin I 0.01 0.01 (0.01-0.04) ng/ml Discharge Plan Discharge Clinical Impression: COPD (chronic obstructive pulmonary disease), Chest pain Patient Disposition: Home, Self-Care Instructions: COPD (Chronic Obstructive Pulmonary Disease) (DC) Additional Instructions: Your CT scan does not show any evidence of pneumonia or blood clot. It does look like you have some bronchitis or COPD exacerbation. I am going to put you on a couple of medicines to help treat for this. You can pick these medications up tomorrow. If you feel worse, have more significant shortness of breath, fevers, or worsening, return to the ER. Otherwise, I would recommend that you follow with your primary doctor for recheck in the next 7-10 days. Prescriptions: New prednisone 20 mg tablet 20 mg PO BID Qty: 10 0RF azithromycin [Zithromax Z-Stalin] 250 mg tablet See Rx Instructions .ROUTE .COMPLEX Qty: 6 0RF Rx Instructions: For 250 mg dose pack: take 500 mg today (day 1), then 250 mg for 4 days (days 2-5) Combivent Respimat 20-100 mcg/actuation mist 1 puff inhalation Q6H Qty: 4 2RF No Action atorvastatin 40 mg tablet nicotine 14 mg/24 hr patch 24 hour ipratropium-albuterol 0.5 mg-3 mg(2.5 mg base)/3 mL solution for nebulization INHALATION Patient Comments: USE 3 ML VIA NEBULIZER FOUR TIMES DAILY NEEDED FOR SHORTNESS OF BREATH levothyroxine 25 mcg tablet Patient Comments: TAKE 1 AND 1/2 TABLETS BY MOUTH EVERY DAY BEFORE BREAKFAST lisinopril 5 mg tablet albuterol sulfate 90 mcg/actuation HFA aerosol inhaler INHALATION Patient Comments: INHALE 2 PUFFS BY MOUTH EVERY 4 HOURS NEEDED Anoro Ellipta 62.5-25 mcg/actuation blister with device INHALATION Patient Comments: INHALE 1 PUFF BY MOUTH ONCE DAILY. DISCARD INHALER 6 WEEKS AFTER OPENING OR WHEN THE COUNTER READS Combivent Respimat 20-100 mcg/actuation mist INHALATION Patient Comments: INHALE 1 PUFF BY MOUTH EVERY 4 HOURS NEEDED Follow Up/Referrals: Provider,Not a Local [Primary Care Provider, Family Practice] Stand Alone Forms: [facility] Info Instructions
[2025-03-31 17:23] LABS: Hematocrit 34.6 % (33.0-51.0); Hemoglobin* 11.4 gm/dL (12.0-16.0); Immature Granulocytes Abs Auto 0.06 K/uL (0.00-0.30); Immature Granulocytes Pct Auto 0.7 %; Mean Corpuscular HGB Conc 33 gm/dL (32-36); Mean Corpuscular Hemoglobin 30 pg (26-34); Mean Corpuscular Volume 91 fL (80-100); RDW Coefficient of Variation % 12.4 % (11.5-15.5); Red Blood Count 3.79 m/uL (4.00-5.20); White Blood Count* 9.13 K/uL (4.50-11.00)
[2025-03-31 17:28] LABS: Lymphocytes Absolute Auto 1.10 K/uL (0.90-2.90); Slide Review Reflex No
[2025-03-31 17:28] LABS: Troponin, Point-of-Care* 0.01 ng/ml (0.01-0.04)
[2025-03-31 17:35] LABS: Albumin* 4.2 g/dL (3.3-5.0); Chloride* 102 mmol/L (96-114)
[2025-03-31 17:36] LABS: Potassium* 3.3 mmol/L (3.6-5.1); Sodium* 136 mmol/L (135-149)
[2025-03-31 17:38] LABS: Blood Urea Nitrogen* 20 mg/dL (7-30); Creatinine* 0.9 mg/dL (0.5-1.5); Est. Creatinine Clearance* 50.82; Estimated Glomerular Filt Rate 70 ml/min
[2025-03-31 17:39] LABS: Alanine Aminotransferase* 22 U/L (4-35); Alkaline Phosphatase* 98 U/L (40-150); Anion Gap 11 mEq/L (7-15); Aspartate Amino Transferase* 38 U/L (12-35); Bilirubin Direct* 0.3 mg/dL (0.0-0.5); Bilirubin Total* 0.5 mg/dL (0.1-1.5); Calcium* 8.6 mg/dL (8.4-10.6); Carbon Dioxide* 23 mmol/L (20-32); Ethanol* 0.09 % (0.01-0.03); Glucose* 110 mg/dL (60-115); Total Protein* 7.7 g/dL (6.0-8.3)
[2025-03-31 17:40] LABS: D Dimer Quantitative* 1.07 ug/ml (0.00-0.50)
[2025-03-31 17:48] LABS: NT Pro B Type NatriureticPept* 354 pg/mL (See Note)
--- NOTE | 2025-03-31 17:49 | CRLHL7_ITS ---
For Patients: As a result of the Century Cures Act, medical imaging exams and procedure reports are released immediately into your electronic medical record. You may view this report before your referring provider. If you have questions, please contact your health care provider. INDICATION: SOB. LEFT CP. TECHNIQUE: CT chest PE was acquired with 95 cc Isovue 370 IV contrast. MIP reformations constructed. COMPARISON: None. FINDINGS: Heart and vasculature: Contrast opacification of the pulmonary arterial tree is adequate. No sign of pulmonary embolism. Heart size is normal. Thoracic aorta is normal in caliber. Coronary artery calcifications. Lungs: Diffuse bronchial wall thickening with mild scattered distal airway opacification. No suspicious nodules or infiltrates. Few small hyperdense foci in the left lung may reflect calcified granulomata. Pleura: No pleural effusion or pneumothorax. Lymph nodes/mediastinum: No mediastinal, hilar, or axillary adenopathy. Chest wall: No masses. Upper abdomen: No acute or significant findings. Bones: Unremarkable for age. IMPRESSION: 1. No acute pulmonary embolism. 2. Diffuse bronchial wall thickening, compatible with reactive or infectious small airways disease. There is also mild scattered distal airway debris, which may reflect mucous plugging and/or aspiration. Please note that all CT scans at this facility use dose modulation, iterative reconstruction, and/or weight-based dosing when appropriate to reduce radiation dose to as low as reasonably achievable. Dictated by Luis Moya MD @ 03/31/2025 6:32:06 PM (Electronically Signed)
[2025-03-31] MEDS: MAGNESIUM IV 2 GM/50 ML PIGGYBACK IVPB (18:09)
[2025-03-31] MEDS: 0.9 % SODIUM CHLORIDE 500 ML 500 ML IV (18:09)
[2025-03-31 20:06] LABS: Troponin, Point-of-Care* 0.01 ng/ml (0.01-0.04)
--- NOTE | 2025-04-01 09:50 | PC.NURSE ---
Patient called stating her prescriptions were sent to the wrong pharmacy. Patient stated her insurance prefers [facility] pharmacy in [place]. Patient also stated that she does not need the Combivent inhaler prescription as she already has one from another doctor. Called in Azithromycin 250mg dose pack (500mg day 1, 250mg day 2-5), and Prednisone 20mg BID X5 days (10 tabs total) No refills on either to [facility] in [place]. Cancelled prescriptions at [facility] pharmacy.
== END 2025-03-31 20:40 | disposition home or self-care (01) ==
PROVIDERS: Emergency Provider Emergency Medicine
DX: R07.9 Chest pain, unspecified (principal); J44.9 Chronic obstructive pulmonary disease, unspecified
CPT/HCPCS: 36415; 71045; 71275; 80048; 80076; 82077; 83735; 83880; 84484; 85025; 85379; 86140; 94761; 96365; 99284; J3475; J7030; J7512; Q9967